=== PATIENT | male | born 1980 | race Caucasian/White ===

== ENCOUNTER 2024-06-15 10:14 | Emergency (ER) | payer BC ==
[2024-06-15] MEDS ORDERED: Ondansetron PF 4 MG/2 ML Vial ONE ×2 (10:51→11:59)
[2024-06-15] MEDS ORDERED: Pantoprazole 40 MG VIAL ONE (10:51)
[2024-06-15 11:29] LABS: Hematocrit 45.2 % (38.8-50.0); Hemoglobin 14.8 g/dL (13.5-17.5); Mean Corpuscular HGB CONC 32.7 g/dL (32.0-36.0); Mean Corpuscular Hemoglobin 27.6 pg (27.0-33.0); Mean Corpuscular Volume 84.2 fL (81.2-95.1); Mean Platelet Volume 9.7 fL (7.4-10.4); Platelet Count 374 10x3/uL (150-450); RBC Distribution Width 12.5 % (11.5-14.5); Red Blood Cell (RBC) Count 5.37 10x6/uL (4.32-5.72); White Blood Cell (WBC) Count 13.7 10x3/uL (3.5-10.5)
[2024-06-15 11:30] LABS: MDiff Complete? YES
[2024-06-15 11:32] LABS: Analyzer IN Cardio CS ER; Base Excess -2.7 mEq/L (-2 - +2); Calcium, Ionized (venous) 1.14 mmol/L (1.16-1.32); Chloride (VBG) 101 mmol/L (98-106); Hematocrit-VBG 46 % (42.0-52.0); Hemoglobin (Hb) 15.8 g/dL (13.2-17.3); Potassium (VBG) 4.51 mmol/L (3.70-5.30); Puncture Site Other Site; RapidComm Collect By RN; Sodium 139 mmol/L (133-146); pH (venous) 7.343 (7.32-7.43)
[2024-06-15 11:44] LABS: ALT (SGPT) 17 U/L (8-55); AST (SGOT) 13 U/L (5-34); Alkaline Phosphatase 96 U/L (40-110); Anion Gap 17 mmol/L (10-20); BUN (Urea Nitrogen) 7 mg/dL (8.9-20.6); Bilirubin, Total 0.6 mg/dL (0.2-1.2); Calc. Creatinine Clearance 0 mL/min (70-130); Calcium 9.1 mg/dL (7.8-10.44); Carbon Dioxide 21 mmol/L (22-29); Chloride 103 mmol/L (98-107); Estimated GFR 104; Globulin 3.6 g/dL (2.4-3.5); Glucose 240 mg/dL (70-105); Lymphocytes 8 % (21-51); Magnesium 1.9 mg/dL (1.6-2.6); Monocytes 3 % (0-10); Neutrophil 89 % (42-75); Potassium 4.4 mmol/L (3.5-5.1); Protein, Total 7.6 g/dL (6.0-8.3); Sodium 137 mmol/L (136-145)
[2024-06-15 11:45] LABS: Platelet Adequacy Comment Appears Adequate; RBC Morph Comment Within Normal Limits
[2024-06-15 12:07] LABS: Lipase Less than 4 U/L (8-78)
[2024-06-15 12:15] LABS: Bilirubin Neg (Negative); Blood, Urine Negative (Negative); Clarity Clear (Clear); Glucose, Urine (Dipstick) >=1000 mg/dL (Negative); Ketone, Urine 150 mg/dL (Negative); Leukocyte Negative (Negative); Nitrite Negative (Negative); Protein, Urine (Dipstick) 15 mg/dl (Neg-Trace); Specific Gravity, Urine 1.025 (1.005-1.030); Urobilinogen Normal mg/dL (Less than 2)
[2024-06-15 12:43] LABS: Bacteria/HPF Rare-Few HPF (None Seen); CAUTI Indications for Culture Pelvic or flank pain; RBC/HPF None Seen HPF (0-3); WBC/HPF 0-3 HPF (0-3)
[2024-06-15 12:45] LABS: Urine Culture Reflex No No
[2024-06-15] MEDS ORDERED: Lorazepam 2 MG/ML VIAL ONE (13:11)
== END 2024-06-15 14:06 | disposition home or self-care (01) ==
LOC: CSHERS 10:14
DX: H81.399 Other peripheral vertigo, unspecified ear (principal); E86.0 Dehydration; R29.700 NIHSS score 0; E11.65 Type 2 diabetes mellitus with hyperglycemia
CPT/HCPCS: 80053; 81001; 82805; 83690; 83735; 85025; 87428; 96361; 96374; 96375; 96376; J2060; J2405; J2470